=== PATIENT | male | born 1965 | race Caucasian/White ===

== ENCOUNTER 2018-03-13 08:15 | Day surgery (SDC) | payer SELFPAY ==
[2018-03-06 09:46] VITALS: BMI 31.1
[2018-03-13] MEDS ORDERED: Propofol 10 mg/ml Inj (20 ML) ONE (09:41)
[2018-03-13] MEDS ORDERED: Midazolam 2 MG/2 ML VIAL ONE (09:41)
[2018-03-13] MEDS ORDERED: Bupivacaine-Epi 0.5%-1:200,000 PF Inj IJ ONE ×2 (09:44→09:45)
[2018-03-13] MEDS ORDERED: ceFAZolin 1 gm FROZEN Premix 1 GM/50 ML ML IVPB ONE (09:53)
[2018-03-13] MEDS ORDERED: HYDROmorphone 0.5 mg/0.5 ml ISec IVP PRN (10:18)
[2018-03-13] MEDS ORDERED: Neostigmine Methylsulfate 3mg/3ml Syringe IV ONE (10:21)
--- NOTE | 2018-03-13 11:35 | PCM.SURG1 ---
Surgeon's Initial Post Op Note - Surgeon's Notes Surgeon: Dr. Paxton Jacobson Bushel Worker: Dr. Gomes PGY3, Stud. Dr Cole Type of Anesthesia: General Endo, Local Pre-Operative Diagnosis: left mid back mass Operative Findings: soft tissue fatty mass Post-Operative Diagnosis: same Operation Performed: excision of left mid back mass Specimen/Specimens Removed: soft tissue mass Estimated Blood Loss: EBL {In ML}: 10 Blood Products Given: N/A Drains Used: No Drains Post-Op Condition: Good Date of Surgery/Procedure: 03/13/18 Time of Surgery/Procedure: 11:35
[2018-03-13 12:14] VITALS: O2SAT 100
[2018-03-13] MEDS ORDERED: Lactated Ringer's 1,000 ML IV ONE (13:00)
[2018-03-13 13:16] LABS: HEPATITIS B SURFACE AG Negative (NEGATIVE)
[2018-03-13 13:21] LABS: HEPATITIS A IGM NEGATIVE (NEGATIVE); HEPATITIS B CORE AB NEGATIVE (NEGATIVE)
[2018-03-13 13:33] LABS: HEPATITIS C ANTIBODY NEGATIVE (NEGATIVE)
[2018-03-13 14:38] VITALS: BP 136/70; PULSE 90; RESP 18; TEMP 97
--- NOTE | 2018-03-13 22:13 | OP ---
PROCEDURE DATE: 03/13/2018 PREOPERATIVE DIAGNOSIS: Left back soft tissue mass. POSTOPERATIVE DIAGNOSIS: Left back lipoma. PROCEDURE PERFORMED: Excision of left back soft tissue mass measures 8 cm x 8 cm in dimension. SURGEON: Tricia Jacobson MD. [employer] SUITING SHRINKER: Leni Berger PGY 3 resident. ANESTHESIA: General anesthesia as well as 0.5 Marcaine with epinephrine, local anesthesia. SPECIMENS REMOVED: Left upper back lipoma. INDICATIONS FOR SURGERY: The patient is a 52-year-old male who noticed a lump on his left upper back several years ago. Over the last several years, it is slowly increasing in size and causing him pain and discomfort, also limiting his upper extremity activity. He was examined in the office and found to have what appeared to be benign lipoma. We discussed the risks and benefits of undergoing a soft tissue mass excision. This was discussed in clinic, risk and benefits including bleeding, infection, seroma and wished to proceed. Informed consent was obtained prior to reporting to the operating room DESCRIPTION OF OPERATION: The patient was brought back to the operating room table. SCDs were applied prior to inducing of anesthesia. He was initially intubated on the patient cart prior to being moved over to the table after successful endotracheal intubation, the patient was then turned prone on to the operating room table. This was done with multiple team members in the operating room assuring safe padding of not only his face and his chest as well as 2 large rolls to support his hips. The patient was safely turned and his arms were positioned by his side in a relaxed position. The patient was given Ancef 1 gm prior to making incision. The patient was also secured with a safety strap on his posterior thighs. A time-out was performed prior to making incision, 0.5% Marcaine with epinephrine local anesthesia was injected generously about 15 mL was used to inject the skin and subcutaneous tissue. A transverse incision measuring about 6 cm was made directly over the mass which was premarked with a marking pen. We dissected sharply down through dermis, once we encountered this subcutaneous fat tissue, we then began to make tissue flaps on superior and inferior flaps were created successfully, dissection taken down to the fascia, it appeared as though the mass was actually invading some areas of the fascia and so we meticulously dissected the mass of the fascia of the muscles of the back. The mass was successfully removed in its entirety. We then inspected the wound for any other areas of lipomatous tissue, there were none. The mass was definitely benign appearing and there was no other deeper involvement of muscle or any other tissues. The mass was then sent off to pathology for permanent section. We then irrigated the wound with about 60 mL of normal saline. The wound was then again reexamined and hemostasis was achieved using electrocautery. The subcutaneous tissue was closed with 2-0 Vicryl deep dermal interrupted sutures were placed and the skin was then closed with 4-0 Monocryl. Dermabond was then applied to the skin incision. The patient tolerated the procedure well without any complications. Sponge and needle counts and instrument counts were all correct at the end of the operation. I was present for the entirety of the case and the patient was extubated in the operating room without incidence and brought to the PACU in stable condition. Tricia Jacobson MD [facility]
== END 2018-03-13 15:04 | disposition home or self-care (01) ==
LOC: C.SDS 08:15
PROVIDERS: ATTEND Surgery
DX: M79.9 Soft tissue disorder, unspecified (principal); D17.1 Benign lipomatous neoplasm of skin and subcutaneous tissue of trunk; I10 Essential (primary) hypertension; Z86.73 Personal history of transient ischemic attack (TIA), and cerebral infarction without residual deficits; Z91.81 History of falling
CPT/HCPCS: 21931; 36415; 80074; 86592; 86703; 87340; 88307; J0690; J1100; J1885; J2250; J2405; J2704; J2710; J3010; J7120